=== PATIENT | male | born 1985 | race Two or more races ===

== ENCOUNTER 2019-04-23 21:24 | Emergency (ER) | payer OTHER ==
[~2019-04-23] VITALS: Ht 175.3 cm; Wt 79.4 kg
[2019-04-23 22:00] VITALS: BP 129/75
[2019-04-23] MEDS ORDERED: IBUPROFEN 400 MG TABLET PO ONE (22:30)
[2019-04-23] MEDS ORDERED: AMOX/CLAVULANATE 875 MG TABLET PO ONE (22:30)
[2019-04-23] MEDS ORDERED: TDAP [DIPH/PERTUSSIS/TET] 0.5 ML VIAL IM ONE ×2 (22:30→22:55)
[2019-04-23] MEDS ORDERED: AMOX/CLAVULANATE 875 MG TABLET ONE (22:53)
[2019-04-23] MEDS ORDERED: IBUPROFEN 400 MG TABLET ONE (22:53)
== END 2019-04-23 23:51 | disposition home or self-care (01) ==
LOC: ER 21:26
DX: S81.812A Laceration without foreign body, left lower leg, initial encounter (principal); S31.114A Laceration without foreign body of abdominal wall, left lower quadrant without penetration into peritoneal cavity, initial encounter; W54.0XXA Bitten by dog, initial encounter; Y93.89 Activity, other specified; Y92.89 Other specified places as the place of occurrence of the external cause; Y99.8 Other external cause status
CPT/HCPCS: 90471; 90715; 99283; A6403